=== PATIENT | male | born 1965 | race Caucasian/White ===

== ENCOUNTER 2016-12-27 00:45 | Emergency (ER) | payer MEDICAID ==
[~2016-12-27] VITALS: Ht 167.6 cm; Wt 80.9 kg
[2016-12-27] MEDS ORDERED: ATORVASTATIN CALCIUM 40 MG TABLET PO ONE (01:15)
[2016-12-27] MEDS ORDERED: NITROGLYCERIN 2% (1 GM=INCH) PACKET TP ONE (01:15)
[2016-12-27] MEDS ORDERED: ASPIRIN 81 MG CHEWABLE TABLET PO ONE (01:15)
[2016-12-27] MEDS ORDERED: NITROGLYCERIN 0.4 MG SUBLINGUAL TABLET #25 SL ONE (01:15)
[2016-12-27] MEDS ORDERED: LABETALOL HCL 5 MG/ML 20 ML VIAL IVP ONE (01:15)
[2016-12-27 01:23] LABS: BASOPHILS # (AUTO) 0.01 K/uL (0.00-0.20); EOSINOPHILS % (AUTO) 0.01 % (1.0-6.0); HEMATOCRIT 53.6 % (41-53); HEMOGLOBIN 17.9 g/dL (13.5-17.5); LYMPHOCYTES # (AUTO) 1.1 K/uL (1.0-4.8); LYMPHOCYTES % (AUTO) 7.1 % (22.0-44.0); MEAN CORPUSCULAR HEMOGLOBIN 31.3 pg (26.0-34.0); MEAN CORPUSCULAR HGB CONC 33.4 G/dL (31.0-37.0); MEAN CORPUSCULAR VOLUME 93 fL (80-100); MONOCYTES # (AUTO) 0.3 K/uL (0.1-1.0); MONOCYTES % (AUTO) 1.6 % (2.0-9.0); NEUTROPHILS # (AUTO) 14.7 K/uL (1.8-7.7); PLATELET COUNT (AUTO) 243 K/uL (150-450); RED BLOOD CELL COUNT(AUTO) 5.74 MIL/uL (4.50-5.90); RED CELL DISTRIBUTION WIDTH 12.4 % (11.5-14.5); WHITE BLOOD COUNT (AUTO) 16.1 K/uL (4.5-11.0)
[2016-12-27 01:25] VITALS: BP 159/109
[2016-12-27 01:25] LABS: NEUTROPHILS % (AUTO) 91.2 % (40.0-70.0)
[2016-12-27 01:31] LABS: ANION GAP 9 mmol/L (8-16); CARBON DIOXIDE 27 mmol/L (22-29); CHLORIDE 103 mmol/L (98-107); CREATININE 1.01 mg/dL (0.60-1.30); GLOMERULAR FILTR. RATE CALC > 60 mL/min (>60); POTASSIUM 3.6 mmol/L (3.5-5.1); SODIUM SERUM 139 mmol/L (136-145); UREA NITROGEN, BLOOD 13 mg/dL (7-18)
[2016-12-27 01:34] LABS: INR 1.1 (0.9-1.1); PROTHROMBIN TIME 11.3 SEC (9.4-11.6)
[2016-12-27 01:54] LABS: B-TYPE NATRIURETIC PEPTIDE 14 pg/mL (0-100)
[2016-12-27 02:05] LABS: ALANINE AMINOTRANSFERASE 74 U/L (12-78); ALBUMIN 4.3 g/dL (3.4-5.0); ASPARTATE AMINOTRANSFERASE 343 U/L (15-37); BILIRUBIN,TOTAL 1.7 mg/dL (0.1-1.0); CREATINE KINASE MB 252.5 ng/mL (0-5); TOTAL PROTEIN, SERUM 7.5 g/dL (6.4-8.2)
[2016-12-27 02:08] LABS: CREATINE KINASE, TOTAL 3006 U/L (39-308)
== END 2016-12-27 01:25 | disposition short-term general hospital (02) ==
LOC: EMS 00:47
DX: I21.3 ST elevation (STEMI) myocardial infarction of unspecified site (principal)
CPT/HCPCS: 36415; 71010; 80053; 82550; 82553; 83880; 84484; 85025; 85610; 85730; 93005; 96374; 99291; J3490

== ENCOUNTER 2017-01-28 19:41 | Emergency (ER) | payer MEDICAID ==
[~2017-01-28] VITALS: Ht 172.7 cm; Wt 79.5 kg
[2017-01-28] MEDS ORDERED: ATOR40TA28 PO (20:51)
[2017-01-28] MEDS ORDERED: LISI-660 PO (20:51)
[2017-01-28] MEDS ORDERED: CARV3 PO (20:51)
[2017-01-28] MEDS ORDERED: TICA90TA PO (20:51)
[2017-01-28] MEDS ORDERED: ASPI81 PO (20:51)
[2017-01-28] MEDS ORDERED: HYDROCODONE/ACETAMINOPHEN 5-325 MG TABLET PO ONE (21:45)
[2017-01-28 22:17] VITALS: BP 128/68
== END 2017-01-28 22:19 | disposition home or self-care (01) ==
LOC: EMS 19:43
DX: S33.5XXA Sprain of ligaments of lumbar spine, initial encounter (principal); I11.9 Hypertensive heart disease without heart failure; E78.00 Pure hypercholesterolemia, unspecified; Z79.82 Long term (current) use of aspirin; X58.XXXA Exposure to other specified factors, initial encounter; Y93.89 Activity, other specified; Y92.89 Other specified places as the place of occurrence of the external cause; Y99.8 Other external cause status
CPT/HCPCS: 99283

== ENCOUNTER 2017-08-11 23:43 | Emergency (ER) | payer MEDICAID ==
[~2017-08-11] VITALS: Ht 167.6 cm; Wt 74.5 kg
[~2017-08-11 23:43] MED LIST: ASPI81 PO; ATOR40TA28 PO; CARV3 PO; LISI-660 PO; TICA90TA PO
[2017-08-12 00:08] VITALS: BP 133/95
== END 2017-08-12 00:47 | disposition home or self-care (01) ==
LOC: EMS 23:44
DX: I10 Essential (primary) hypertension (principal); E78.00 Pure hypercholesterolemia, unspecified
CPT/HCPCS: 99281

== ENCOUNTER → 2018-11-30 | Outpatient (CLI) | payer MEDICAID ==
[~2018-11-30] MED LIST changes: -ATOR40TA28 PO
== END | disposition home or self-care (01) ==
LOC: RADPV 14:27
PROVIDERS: ATTEND Internal Medicine Cardiovascular Disease
DX: I51.7 Cardiomegaly (principal); I25.2 Old myocardial infarction
CPT/HCPCS: 93306

== ENCOUNTER 2019-11-13 13:06 | Emergency (ER) | payer MEDICAID ==
[~2019-11-13] VITALS: Ht 172.7 cm; Wt 81.8 kg
[2019-11-13] MEDS ORDERED: ATOR20TA86 PO (13:15)
[2019-11-13 16:20] VITALS: BP 111/74
== END 2019-11-13 16:20 | disposition home or self-care (01) ==
LOC: EMS 13:07
DX: L30.9 Dermatitis, unspecified (principal); K62.89 Other specified diseases of anus and rectum; I11.9 Hypertensive heart disease without heart failure; E78.00 Pure hypercholesterolemia, unspecified; Z79.899 Other long term (current) drug therapy; Z79.82 Long term (current) use of aspirin

== ENCOUNTER 2020-05-05 10:55 | Emergency (ER) | payer MEDICAID ==
[~2020-05-05] VITALS: Ht 167.6 cm; Wt 75.0 kg
[~2020-05-05 10:55] MED LIST changes: +ASPI-728 PO; -ASPI81 PO; +ATOR20TA86 PO; -TICA90TA PO
[2020-05-05] MEDS ORDERED: CARV12 PO (11:06)
[2020-05-05] MEDS ORDERED: LOSA25TA71 PO (11:06)
[2020-05-05] MEDS ORDERED: POVIDONE-IODINE 10% 15 ML SOLUTION UD TP ONE (11:30)
[2020-05-05] MEDS ORDERED: LIDOCAINE 1% 10 ML VIAL INJ ONE (11:30)
[2020-05-05] MEDS ORDERED: SULFAMETHOX/TRIMETH DS 800-160 MG/TABLET PO ONE (11:30)
[2020-05-05] MEDS ORDERED: CEPHALEXIN MONOHYDRATE 500 MG CAPSULE PO ONE (11:30)
[2020-05-05] MEDS ORDERED: BACITRACIN 0.9 GM PACKET OINTMENT TP ONE (11:30)
[2020-05-05] MEDS ORDERED: IBUPROFEN 800 MG TABLET PO ONE (11:30)
[2020-05-05 12:08] VITALS: BP 123/73
== END 2020-05-05 12:14 | disposition home or self-care (01) ==
LOC: EMS 11:00
DX: L05.91 Pilonidal cyst without abscess (principal); L03.317 Cellulitis of buttock; I11.9 Hypertensive heart disease without heart failure; E78.00 Pure hypercholesterolemia, unspecified
CPT/HCPCS: 10080; 99284; J3490

== ENCOUNTER 2020-05-10 12:31 | Emergency (ER) | payer MEDICAID ==
[~2020-05-10] VITALS: Ht 167.6 cm; Wt 81.8 kg
[~2020-05-10 12:31] MED LIST changes: +CARV12 PO; -CARV3 PO; -LISI-660 PO; +LOSA25TA71 PO
[2020-05-10] MEDS ORDERED: SULF-289 PO (12:46)
[2020-05-10] MEDS ORDERED: CEPH500 PO (12:46)
[2020-05-10 14:07] VITALS: BP 118/73
== END 2020-05-10 14:11 | disposition home or self-care (01) ==
LOC: EMS 12:33
DX: N48.89 Other specified disorders of penis (principal); I11.9 Hypertensive heart disease without heart failure; E78.00 Pure hypercholesterolemia, unspecified; I25.2 Old myocardial infarction

== ENCOUNTER 2020-05-21 19:21 | Emergency (ER) | payer MEDICAID ==
[~2020-05-21] VITALS: Ht 167.6 cm; Wt 72.7 kg
[~2020-05-21 19:21] MED LIST changes: +CEPH500 PO; +SULF-289 PO
[2020-05-21] MEDS ORDERED: IBUPROFEN 600 MG TABLET PO ONE (23:15)
[2020-05-21 23:29] VITALS: BP 142/85
== END 2020-05-21 23:28 | disposition home or self-care (01) ==
LOC: EMS 19:21
DX: S92.521A Displaced fracture of middle phalanx of right lesser toe(s), initial encounter for closed fracture (principal); I11.9 Hypertensive heart disease without heart failure; E78.00 Pure hypercholesterolemia, unspecified; W22.8XXA Striking against or struck by other objects, initial encounter; Y93.89 Activity, other specified; Y92.89 Other specified places as the place of occurrence of the external cause; Y99.8 Other external cause status
CPT/HCPCS: 29550

== ENCOUNTER 2020-05-24 19:27 | Emergency (ER) | payer MEDICAID ==
[~2020-05-24] VITALS: Ht 167.6 cm; Wt 68.2 kg
[~2020-05-24 19:27] MED LIST changes: -CEPH500 PO; -LOSA25TA71 PO; -SULF-289 PO
[2020-05-24] MEDS ORDERED: ACYCLOVIR 200 MG CAPSULE PO ONE (22:30)
[2020-05-24 23:40] VITALS: BP 129/83
== END 2020-05-24 23:51 | disposition home or self-care (01) ==
LOC: EMS 19:28
DX: N48.29 Other inflammatory disorders of penis (principal); B00.9 Herpesviral infection, unspecified; I11.9 Hypertensive heart disease without heart failure; E78.00 Pure hypercholesterolemia, unspecified; I25.2 Old myocardial infarction

== ENCOUNTER 2022-09-17 13:49 | Emergency (ER) | payer MEDICAID ==
[~2022-09-17] VITALS: Ht 167.6 cm; Wt 77.3 kg
[~2022-09-17 13:49] MED LIST changes: +ASPI-1450 PO; -ASPI-728 PO
[2022-09-17] MEDS ORDERED: AMLO2.5T96 PO (14:08)
[2022-09-17] MEDS ORDERED: CARV12.530 PO (14:08)
[2022-09-17] MEDS ORDERED: ATOR40TA71 PO (14:08)
[2022-09-17] MEDS ORDERED: ACYC5CRE2 TP (15:26)
[2022-09-17] MEDS ORDERED: VALA500T42 PO (15:26)
[2022-09-17] MEDS ORDERED: DIPH50CA37 PO (15:26)
[2022-09-17] MEDS ORDERED: CEPH-558 PO (15:26)
[2022-09-17 15:43] VITALS: BP 144/79
== END 2022-09-17 15:48 | disposition home or self-care (01) ==
LOC: EMS 13:52
DX: B00.9 Herpesviral infection, unspecified (principal); I11.9 Hypertensive heart disease without heart failure; I21.9 Acute myocardial infarction, unspecified; E78.00 Pure hypercholesterolemia, unspecified; Z98.890 Other specified postprocedural states
CPT/HCPCS: 99283; Z7502